=== PATIENT | female | born 1965 | race Caucasian/White ===

== ENCOUNTER 2020-05-10 10:14 | Inpatient (IN) | payer SELFPAY ==
[2020-05-10] MEDS ORDERED: ASPIRIN 81 MG CHEWABLE TABLET ONE (11:23)
[2020-05-10] MEDS ORDERED: METOPROLOL TAR 50 MG TAB ONE (11:24)
[2020-05-10] MEDS ORDERED: NYSTATIN 100MU/GM CREAM 15GM TOP ONE (11:24)
[2020-05-10] MEDS ORDERED: FAMOTIDINE 20 MG/2 ML VIAL IV ONE (11:24)
[2020-05-10] MEDS ORDERED: ENOXAPARIN 80 MG/0.8 ML SQ ONE (11:24)
--- NOTE | 2020-05-10 11:40 | RAD REPORT ---
EXAM DESCRIPTION: Faisalt Single View05/10/2020 11:34 am CLINICAL HISTORY: Chest pain COMPARISON: none FINDINGS: An area of subsegmental atelectasis is present in the mid left lung. The remainder the lungs appear clear of acute infiltrate. The heart is probably upper limits normal size
--- NOTE | 2020-05-10 11:40 | ER ---
Nurse's Notes [facility] Name: Tabitha Monteiro Age: 54 yrs Sex: Female : 1965 Arrival Date: 05/10/2020 Time: 10:17 Bed 18 Private MD: Diagnosis: Chest pain, unspecified;Angina pectoris Presentation: 05/10 10:30 Chief complaint: Patient states: episodic chest pain x 2 weeks ago. Pt states "I get aa5 the pain when I am trying to exercise or when I am stressed about something". Pt also c/o michael burning pain to hands, scaly rash noted to palms, pt states "I've had this rash for about a month now". 10:30 Coronavirus screen: Client denies travel out of the [place] in the last 14 days. At this aa5 time, the client does not indicate any symptoms associated with coronavirus-19. Ebola Screen: Patient negative for fever greater than or equal to 101.5 degrees Fahrenheit, and additional compatible Ebola Virus Disease symptoms. Initial Sepsis Screen: Does the patient meet any 2 criteria? No. Patient's initial sepsis screen is negative. Does the patient have a suspected source of infection? No. Patient's initial sepsis screen is negative. Risk Assessment: Do you want to hurt yourself or someone else? Patient reports no desire to harm self or others. Onset of symptoms was April 2020. 10:30 Acuity: TD 3 aa5 10:30 Method Of Arrival: Ambulatory aa5 Triage Assessment: 10:30 General: Appears in no apparent distress. uncomfortable, Behavior is cooperative, bp appropriate for age, anxious. Pain: Complains of pain in chest. EENT: No deficits noted. Neuro: No deficits noted. Cardiovascular: Rhythm is sinus rhythm. Respiratory: No deficits noted. GI: No signs and/or symptoms were reported involving the gastrointestinal system. : No signs and/or symptoms were reported regarding the genitourinary system. Derm: No deficits noted. Musculoskeletal: No deficits noted. Historical: - Allergies: 10:30 No Known Allergies; aa5 - PMHx: 10:30 Thyroid problem; acid reflux; Depression; aa5 - PSHx: 10:30 ; aa5 - Immunization history:: Adult Immunizations unknown. - Social history:: Smoking status: Patient reports the use of cigarette tobacco products, 3 cigarettes a day . - Family history:: not pertinent. Screenin:43 Abuse screen: Denies threats or abuse. Denies injuries from another. Nutritional bp screening: No deficits noted. Tuberculosis screening: No symptoms or risk factors identified. Fall Risk None identified. Assessment: 10:30 General: SEE TRIAGE NOTE. bp 10:30 Pain: Pain does not radiate. Pain began 2 WK AGO. bp 11:30 Reassessment: ALL CURRENT ORDERS COMPLETE, VS STABLE ON MONITOR. bp 12:02 Reassessment: ADMIT MD AT B/S. bp 12:56 Reassessment: ADMIT IN PROCESS. NO ACUTE S/S AT THIS TIME. bp 13:19 Reassessment: PT INSTRUCTED TO REMAIN NPO FOR CARDIAC CATH. bp 13:59 Reassessment: ADMIT COMPLETE, ROOM 209 ASSIGNED. REPORT TO CHELE LLAMAS. bp Vital Signs: 10:30 BP 123 / 49; Pulse 65; Resp 18 S; Temp 98.5(O); Pulse Ox 98% on R/A; Weight 72.12 kg; bp 11:30 BP 115 / 57; Pulse 63; Resp 16; Pulse Ox 99% ; bp 12:55 BP 121 / 72; Pulse 51; Resp 16; Pulse Ox 100% ; bp 13:59 BP 121 / 63; Pulse 61; Resp 17; Temp 98.5; Pulse Ox 98% ; bp ED Course: 10:17 Patient arrived in ED. as 10:20 EKG completed in triage. Results shown to MD. aa5 10:32 Arm band placed on Patient placed in an exam room, on a stretcher. aa5 10:33 Freedom Nolan MD is Attending Physician. [place] 10:33 EKG done, by low voltage technician. reviewed by Freedom Nolan MD. at1 10:40 Triage completed. aa5 10:46 Daniel Hickey, FARHAD is Primary Nurse. bp 11:26 Inserted saline lock: 20 gauge in right antecubital area, using aseptic technique. bp Blood collected. 11:34 XRAY Chest (1 view) In Process Unspecified. EDMS 11:39 Prince Tate MD is Hospitalizing Provider. [place] 11:43 Patient has correct armband on for positive identification. Bed in low position. Call bp light in reach. Side rails up X2. 12:00 planner internship on. Pulse ox on. NIBP on. bp 14:00 No provider procedures requiring assistance completed. Patient admitted, IV remains in bp place. Patient maintains SpO2 saturation greater than 95% on room air. Administered Medications: 11:20 Drug: Aspirin Chewable Tablet 324 mg Route: PO; bp 13:20 Follow up: Response: No adverse reaction bp 11:20 Drug: Lopressor (metoprolol TARTRATE) 50 mg Route: PO; bp 13:20 Follow up: Response: No adverse reaction bp 11:20 Drug: Pepcid 20 mg Route: IVP; Site: right antecubital; bp 13:21 Follow up: Response: No adverse reaction bp 11:20 Drug: Lovenox 1 mg/kg Route: Sub-Q; Site: left lower abdomen; bp 13:20 Follow up: Response: No adverse reaction bp 11:20 Drug: Nystatin-Triamcinolone 1 application Route: Topical; Site: affected area; bp Outcome: 11:39 Decision to Hospitalize by Provider. [place] 14:00 Admitted to Tele accompanied by tech, via wheelchair, room 209, with chart, Report bp called to CHELE LLAMAS 14:00 Condition: stable 14:00 Instructed on the need for admit. 14:17 Patient left the ED. bp Signatures: Dispatcher [employer] EDMS Freedom Nolan MD MD cha Martinez, Amelia as Calderon, Audri, RN RN aa5 Nova Rodriguez, product marketing director EKG Tat1 Daniel Hickey RN RN bp Corrections: (The following items were deleted from the chart) 10:55 10:30 BP 123 / 49; Pulse 65bpm; Resp 18bpm; Spontaneous; Pulse Ox 98% RA; Temp 98.5F bp Oral; aa5
--- NOTE | 2020-05-10 11:40 | EDPHYS ---
Physician Documentation [facility] Name: Tabitha Monteiro Age: 54 yrs Sex: Female : 1965 Arrival Date: 05/10/2020 Time: 10:17 Bed 18 Private MD: SHAKIR Physician Freedom Nolan HPI: 05/10 10:57 This 54 yrs old Female presents to ER via Ambulatory with complaints of Chest [place] Pain, Hand Pain. 10:57 The patient or guardian reports chest pain that is located primarily in the substernal [place] area, anterior chest wall, bilaterally. Onset: today, yesterday. The pain does not radiate. Associated signs and symptoms: Pertinent positives: shortness of breath. The chest pain is described as a pressure. Modifying factors: The symptoms are alleviated by nothing. the symptoms are aggravated by exertion. Severity of pain: At its worst the pain was mild in the emergency department the pain is unchanged. The patient has experienced similar episodes in the past, several times. Historical: - Allergies: 10:30 No Known Allergies; aa5 - PMHx: 10:30 Thyroid problem; acid reflux; Depression; aa5 - PSHx: 10:30 ; aa5 - Immunization history:: Adult Immunizations unknown. - Social history:: Smoking status: Patient reports the use of cigarette tobacco products, 3 cigarettes a day . - Family history:: not pertinent. ROS: 10:57 Constitutional: Negative for fever, chills, and weight loss, Eyes: Negative for injury, [place] pain, redness, and discharge, ENT: Negative for injury, pain, and discharge, Neck: Negative for injury, pain, and swelling, Respiratory: Negative for shortness of breath, cough, wheezing, and pleuritic chest pain, Abdomen/GI: Negative for abdominal pain, nausea, vomiting, diarrhea, and constipation, Back: Negative for injury and pain, : Negative for injury, bleeding, discharge, and swelling, MS/Extremity: Negative for injury and deformity, Skin: Negative for injury, rash, and discoloration, Neuro: Negative for headache, weakness, numbness, tingling, and seizure, Psych: Negative for depression, anxiety, suicide ideation, homicidal ideation, and hallucinations, Allergy/Immunology: Negative for hives, rash, and allergies, Endocrine: Negative for neck swelling, polydipsia, polyuria, polyphagia, and marked weight changes, Hematologic/Lymphatic: Negative for swollen nodes, abnormal bleeding, and unusual bruising. 10:57 Cardiovascular: Positive for chest pain, palpitations. 10:57 Respiratory: Positive for shortness of breath. Exam: 10:57 Constitutional: This is a well developed, well nourished patient who is awake, alert, [place] and in no acute distress. Head/Face: Normocephalic, atraumatic. Eyes: Pupils equal round and reactive to light, extra-ocular motions intact. Lids and lashes normal. Conjunctiva and sclera are non-icteric and not injected. Cornea within normal limits. Periorbital areas with no swelling, redness, or edema. ENT: Nares patent. No nasal discharge, no septal abnormalities noted. Tympanic membranes are normal and external auditory canals are clear. Oropharynx with no redness, swelling, or masses, exudates, or evidence of obstruction, uvula midline. Mucous membranes moist. Neck: Trachea midline, no thyromegaly or masses palpated, and no cervical lymphadenopathy. Supple, full range of motion without nuchal rigidity, or vertebral point tenderness. No Meningismus. Chest/axilla: Normal chest wall appearance and motion. Nontender with no deformity. No lesions are appreciated. Respiratory: Lungs have equal breath sounds bilaterally, clear to auscultation and percussion. No rales, rhonchi or wheezes noted. No increased work of breathing, no retractions or nasal flaring. Abdomen/GI: Soft, non-tender, with normal bowel sounds. No distension or tympany. No guarding or rebound. No evidence of tenderness throughout. Back: No spinal tenderness. No costovertebral tenderness. Full range of motion. Female : Normal external genitalia. Skin: Warm, dry with normal turgor. Normal color with no rashes, no lesions, and no evidence of cellulitis. MS/ Extremity: Pulses equal, no cyanosis. Neurovascular intact. Full, normal range of motion. Neuro: Awake and alert, GCS 15, oriented to person, place, time, and situation. Cranial nerves II-XII grossly intact. Motor strength 5/5 in all extremities. Sensory grossly intact. Cerebellar exam normal. Normal gait. Psych: Awake, alert, with orientation to person, place and time. Behavior, mood, and affect are within normal limits. 10:57 Cardiovascular: Rate: normal, Rhythm: regular, Pulses: Pulses are 4+ in bilateral radial, brachial, femoral, popliteal, posterior tibial and and dorsalis pedis arteries.. Heart sounds: normal, normal S1and S2, no S3 or S4, no murmur, no rub, no gallop, Edema: is not appreciated, JVD: is not appreciated, Bilateral blood pressure: is equal. Vital Signs: 10:30 BP 123 / 49; Pulse 65; Resp 18 S; Temp 98.5(O); Pulse Ox 98% on R/A; Weight 72.12 kg; bp 11:30 BP 115 / 57; Pulse 63; Resp 16; Pulse Ox 99% ; bp 12:55 BP 121 / 72; Pulse 51; Resp 16; Pulse Ox 100% ; bp 13:59 BP 121 / 63; Pulse 61; Resp 17; Temp 98.5; Pulse Ox 98% ; bp MDM: 10:33 Patient medically screened. [place] 11:00 Differential diagnosis: abnormal EKG, acute myocardial infarction, chest wall pain, [place] congestive heart failure cholecystitis, Cholelithiasis costochondritis, hiatal hernia, pancreatitis, pleurisy, pulmonary embolus, stable angina, unstable angina. HEART Score: History: Moderately Suspicious (1), ECG: Non specific repolarization disturbance / LBTB / PM (1), Age: > 45 and < 65 years (1), Risk Factors: 1 or 2 risk factors (1), [Hypertension] [+ Family HX] Troponin: < or = 1 x Normal Limit (0). The patient was given aspirin in the Emergency Department. The patient's deep vein thrombosis risk score was calculated as follows: Total Score: 0. This patient was found to be at low risk for a deep vein thrombosis by using the Well's assessment criteria. The patient's pulmonary embolism risk score was calculated as follows: Total Score: 0-2 points. This patient was found to be at low risk for a pulmonary embolism by using the Well's assessment criteria. PITA Risk Score: TOTAL SCORE = 0. Data reviewed: vital signs, nurses notes, lab test result(s), EKG, radiologic studies, plain films. Data interpreted: library monitor: rate is 65 beats/min, rhythm is regular, Pulse oximetry: on room air is 98 %. Test interpretation: by ED physician or midlevel provider: ECG, plain radiologic studies. 05/10 10:47 Order name: Basic Metabolic Panel; Complete Time: 12:24 [facility] 05/10 10:47 Order name: CBC with Diff; Complete Time: 12:24 [facility] 05/10 10:47 Order name: LFT's; Complete Time: 12:24 [facility] 05/10 10:47 Order name: Magnesium; Complete Time: 12:24 [facility] 05/10 10:47 Order name: NT PRO-BNP; Complete Time: 12:24 [facility] 05/10 10:47 Order name: Troponin (emerg Dept Use Only); Complete Time: 12:24 [facility] 05/10 10:47 Order name: XRAY Chest (1 view); Complete Time: 12:06 [facility] 05/10 10:47 Order name: EKG; Complete Time: 10:48 [facility] 05/10 12:16 Order name: CBC Smear Scan; Complete Time: 12:24 [facility] 05/10 10:47 Order name: Cardiac monitoring; Complete Time: 11:38 [facility] 05/10 10:47 Order name: EKG - Nurse/Tech; Complete Time: 11:38 [facility] 05/10 10:47 Order name: IV Saline Lock; Complete Time: 11:38 [facility] 05/10 10:47 Order name: Labs collected and sent; Complete Time: 11:38 [facility] 05/10 10:47 Order name: O2 Per Protocol; Complete Time: 10:53 [facility] 05/10 10:47 Order name: O2 Sat Monitoring; Complete Time: 10:53 [facility] 05/10 13:06 Order name: NPO; Complete Time: 13:20 [facility] Administered Medications: 11:20 Drug: Aspirin Chewable Tablet 324 mg Route: PO; bp 13:20 Follow up: Response: No adverse reaction bp 11:20 Drug: Lopressor (metoprolol TARTRATE) 50 mg Route: PO; bp 13:20 Follow up: Response: No adverse reaction bp 11:20 Drug: Pepcid 20 mg Route: IVP; Site: right antecubital; bp 13:21 Follow up: Response: No adverse reaction bp 11:20 Drug: Lovenox 1 mg/kg Route: Sub-Q; Site: left lower abdomen; bp 13:20 Follow up: Response: No adverse reaction bp 11:20 Drug: Nystatin-Triamcinolone 1 application Route: Topical; Site: affected area; bp Disposition: 05/10/20 11:39 Hospitalization ordered by Prince Bebeto for Observation. Preliminary diagnosis are Chest pain, unspecified, Angina pectoris. - Bed requested for Telemetry/MedSurg (observation). - Status is Observation. bp - Condition is Fair. - Problem is new. - Symptoms have improved. Signatures: Dispatcher [employer] EDMecca Scherer RN RN dw Anderson, Corey, MD MD cha Calderon, Audri RN RN aa5 Daniel Hickey RN RN bp Corrections: (The following items were deleted from the chart) 13:43 11:39 Hospitalization Ordered by Prince Bebeto BROOKS for Observation. Preliminary dw diagnosis is Chest pain, unspecified; Angina pectoris. Bed requested for Telemetry/MedSurg (observation). Status is Observation. Condition is Fair. Problem is new. Symptoms have improved. [facility] 14:17 13:43 05/10/2020 11:39 Hospitalization Ordered by Prince Bebeto BROOKS for Observation. bp Preliminary diagnosis is Chest pain, unspecified; Angina pectoris. Bed requested for Telemetry/MedSurg (observation). Status is Observation. Condition is Fair. Problem is new. Symptoms have improved. dw
[2020-05-10 11:44] LABS: Absolute Lymphocytes (CBC) 1.5 K/uL (0.7-4.9); Basophils % 1.6 % (0-1.3); Hematocrit 29.7 % (36.0-45.0); Lymphocytes % 30.7 % (15.3-44.8); MPV 8.4 fL (7.6-11.3); RBC Red Blood Cell Count 4.24 M/uL (3.86-4.86)
[2020-05-10 12:08] LABS: ALT/SGPT 14 U/L (12-78); AST/SGOT 16 U/L (15-37); Albumin 3.4 g/dL (3.4-5.0); Alkaline Phosphatase 57 U/L (45-117); BUN Blood Urea Nitrogen 9 mg/dL (7-18); Bicarbonate 26 mmol/L (21-32); Bilirubin Direct < 0.1 mg/dL (0-0.2); Bilirubin Total 0.2 mg/dL (0.2-1.0); Glucose Level 86 mg/dL (74-106); Magnesium 2.2 mg/dL (1.8-2.4); NT PRO-BNP 86 pg/mL (<125); Potassium 4.1 mmol/L (3.5-5.1); Protein, Total 6.8 g/dL (6.4-8.2); Sodium Level 141 mmol/L (136-145); Troponin (Emerg Dept Use Only) < 0.02 ng/mL (0.0-0.045)
[2020-05-10 12:16] LABS: Anisocytosis 2+; Blood Morphology Comment NOTED (NOT SEEN); Hypochromasia 1+; Platelet Estimate ADEQ; White Blood Cell Scan OK (OK)
--- NOTE | 2020-05-10 12:52 | P.HP ---
Certification for Inpatient Patient admitted to: Observation With expected LOS: <2 Midnights Patient will require the following post-hospital care: None Practitioner: I am a practitioner with admitting privileges, knowledge of patient current condition, hospital course, and medical plan of care. Services: Services provided to patient in accordance with Admission requirements found in Title 42 Section 412.3 of the Code of Federal Regulations Patient History Date of Service: 05/10/20 Primary Care Provider: Vincent pedraza [place] resident Reason for admission: Chest pain History of Present Illness: 54-year-old female with history of depression, hypothyroidism, and GERD. Patient presented with chest pain. Chest pain mainly to the left chest wall area. It is associated with some shortness of breath. She has noted some chest pain/shortness of breath with exertion. Pain is about a 5/10. Some radiation noted. Today she noted some increase in palpitations. She denies any cough, wheezing. No recent exposure to COVID. She was tested last week it was negative. She is a smoker but smokes 3 cigarettes per day. Patient came to the ER for further evaluation. In the ER patient evaluated. Vital signs stable. EKG shows known significant changes. No ST elevation noted. White count 4.9, hemoglobin 9.2. Platelet count 314. Sodium 141, potassium 4.1. BUN of 9, creatinine 0.8 with a GFR of 6. Glucose 86. Chest x-ray unremarkable. Patient admitted for further evaluation and treatment. When I saw the patient ER, she appeared comfortable. No significant chest pain noted at this time. Home medications list reviewed: Yes - Past Medical/Surgical History Diabetic: No -: Hypothyroidism -: GERD -: Depression -: Tobacco abuse -: Psychosocial/ Personal History: Patient is single. She has 5 children. - Family History Family History: Reviewed- Non-Contributory - Social History Smoking Status: Light Tobacco smoker (1-9 cigarettes/day) Counseled patient to stop smoking for: less than 10 minutes Smoking therapy provided: Yes Patient receptive to therapy: Yes Alcohol use: No CD- Drugs: No Caffeine use: Yes Place of Residence: Home Review of Systems General: As per HPI Eyes: Unremarkable ENT: Unremarkable Respiratory: Shortness of Breath, SOB with Excertion, As per HPI Cardiovascular: Chest Pain, Palpitations, As per HPI Gastrointestinal: Unremarkable Genitourinary: Unremarkable Musculoskeletal: Unremarkable Integumentary: Unremarkable Neurological: Unremarkable Lymphatics: Unremarkable Physical Examination - Physical Exam General: Alert, In no apparent distress, Oriented x3, Cooperative HEENT: Atraumatic, Normocephalic, PERRLA, Mucous membr. moist/pink Neck: Supple Respiratory: Clear to auscultation bilaterally, Normal air movement Cardiovascular: Normal pulses, Regular rate/rhythm Gastrointestinal: Normal bowel sounds, Soft and benign, Non-distended, No tenderness, No masses, No rebound, No guarding Musculoskeletal: No erythema, No tenderness, No warmth Integumentary: No tenderness/swelling, No erythema, No warmth, No cyanosis Neurological: Normal speech, Normal strength at 5/5 x4 extr, Normal tone, Normal affect - Studies Laboratory Data (last 24 hrs) 05/10/20 11:20: WBC 4.9, Hgb 9.2 L, Hct 29.7 L, Plt Count 314 05/10/20 11:20: Sodium 141, Potassium 4.1, BUN 9, Creatinine 0.87, Glucose 86, Magnesium 2.2, Total Bilirubin 0.2, AST 16, ALT 14, Alkaline Phosphatase 57 Assessment and Plan - Plan Impression: Chest pain with exertion suspect unstable angina Tobacco abuse Hypothyroidism GERD Depression Anemia likely of chronic disease Plan: Chest pain with exertion suspect unstable angina: Patient admitted for further evaluation and treatment. Will continue monitor cardiac enzymes and telemetry. Will order echocardiogram to further evaluate. Cardiology consulted to further evaluate and address. Patient may require inpatient cardiac evaluation. Await recommendations by Cardiology. Will provide aspirin, DVT prophylaxis-Lovenox, and statin medication. Blood pressure stable at this time. No need for medication. Will continue monitor closely. Anticipate possible discharge within 24 hr after further evaluation by Cardiology. Tobacco abuse: Patient smokes very little. Education on cessation provided. Hypothyroidism: Continue home medication-levothyroxine 75 mcg daily. Will check tsh and free T4. GERD: Continue Protonix. Depression: Continue Cymbalta and trazodone. Anemia likely of chronic disease: Will check iron and B12 studies. Discharge Plan: Home Plan to discharge in: 24 Hours - Advance Directives Does patient have a Living Will: No Does patient have a Durable POA for Healthcare: No - Code Status/Comfort Care Code Status Assessed: Yes (Patient is full code) Time Spent Managing Pts Care (In Minutes): 55
[2020-05-10] MEDS ORDERED: ACETAMINOPHEN 500 MG TAB PO PRN (13:59)
[2020-05-10] MEDS ORDERED: ONDANSETRON 4 MG/2 ML VIAL IV PRN (13:59)
[2020-05-10] MEDS: D5 0.9 NS 1,000 ML IV SCH (14:28)
[2020-05-10 14:56] VITALS: BMI 28.1
--- NOTE | 2020-05-10 15:12 | CON ---
Date of Consultation: 05/10/2020 Reason For Consultation: Chest pain. History Of Present Illness: This is a 54-year-old female with history of hypothyroidism, depression, smokes about 3 cigarettes per day, comes in with chest pain. Claimed that it is retrosternal, no ra diation, associated with some shortness of breath. The patient claimed that the pain is happening wi th peak of exercise and she does aerobic activity and it gets better when she rests. Now, she is kira n free. Does not have any nausea or diaphoresis or any fever. No other complaints. Past Medical History: As outlined above in the HPI. Medications: Refer to reconciliation sheet for detailed list. Allergies: NO KNOWN DRUG ALLERGIES. Social History: She is a smoker. Does not use any drugs or alcohol. Family History: No premature coronary artery disease or cancer. Review of Systems: All systems reviewed and they were negative except what mentioned in HPI. Physical Examination: Vital signs: Revealed a temperature of 98.4, heart rate is 78, breathing at 16, blood pressure was 1 35/74. General: Pleasant, middle-aged female, in no apparent distress. Head and Neck: Pupils are equal, react to light. Intact eye movements. No JVD. No cervical lympha denopathy. Neck is supple. Thyroid is not enlarged. Lungs: Clear to auscultation bilaterally. No rhonchi, rales, or crackles. No accessory muscle use. Heart: Regular rate and rhythm. No extra sounds. Abdomen: Soft, nontender. Bowel sounds positive. No organomegaly. No masses or hernia. No rigidi ty or rebound. Extremities: No edema, clubbing, or cyanosis. Intact pulses. Skin: No rash noted. Neurologic: Alert, awake, oriented x3. No acute focal deficits appreciated. Investigations: Creatinine is 0.87. Troponin is less than 0.02. White blood cell count is 4.9 and hemoglobin is 9.2. Assessment And Plan: Chest pain. Has atypical features. However, the patient has already had break fast done. I will recommend admission for observation with serial sets of cardiac enzymes check and telemetry. Obtain echocardiogram and if she rules out with negative troponins, recommend evaluation with stress test. If troponin goes up, then a coronary angiogram will be recommended. Thank you for this consultation. /[email or web address] Voice ID: [id number] Report ID: [id number]
[2020-05-10 16:37] LABS: CKMB Creatine Kinase MB < 1.0 ng/mL (0.3-3.6); Creatine Phosphokinase 34 U/L (26-192); Troponin I < 0.02 ng/mL (0.0-0.045)
[2020-05-10 17:01] LABS: Ferritin 8.3 ng/mL (8-388)
[2020-05-10] MEDS ORDERED: MORPHINE 2 MG/ML SYR IV PRN (20:16)
[2020-05-10] MEDS ORDERED: TRAZODONE 150 MG TAB PO SCH (21:00)
[2020-05-10] MEDS ORDERED: ATORVASTATIN 40 MG TAB PO SCH (21:00)
[2020-05-11 00:53] LABS: CKMB Creatine Kinase MB < 1.0 ng/mL (0.3-3.6); Creatine Phosphokinase 27 U/L (26-192); Troponin I < 0.02 ng/mL (0.0-0.045)
[2020-05-11] MEDS: D5 0.9 NS 1,000 ML IV SCH (03:57)
[2020-05-11 05:13] LABS: Absolute Lymphocytes (CBC) 1.8 K/uL (0.7-4.9); Lymphocytes % 40.3 % (15.3-44.8); MPV 8.2 fL (7.6-11.3); RBC Red Blood Cell Count 3.82 M/uL (3.86-4.86)
[2020-05-11 05:32] LABS: Magnesium 2.2 mg/dL (1.8-2.4); Potassium 3.8 mmol/L (3.5-5.1); Thyroid Stimulating Hormone 0.254 uIU/mL (0.360-3.740)
[2020-05-11] MEDS ORDERED: CYANOCOBALAMIN 1000MCG/ML INJ IM ONE (06:20)
[2020-05-11] MEDS ORDERED: LEVOTHYROXINE SOD 0.075 MG TAB PO SCH (06:30)
[2020-05-11] MEDS ORDERED: PANTOPRAZOLE 40MG TABLET PO SCH (07:30)
--- NOTE | 2020-05-11 07:35 | P.DS ---
Admission Date: 05/11/20 Discharge Date: 05/11/20 Primary Care Provider: milo, JO Kaur resident Discharge Condition: GOOD Reason for Admission: Chest pain Consultations: Cardiology-Dr. Robert Procedures: ECHO: EF 59% LEFT VENTRICULAR WALL MOTION: NORMAL DOPPLER/COLOR FLOW: NORMAL COMMENTS: NORMAL 2-DIMENSIONAL ECHOCARDIOGRAM WITH DOPPLER. NO WALL MOTION ABNORMALITY. NO EFFUSION. Cardiac Stress Test: FINDINGS: No stress induced ischemic defect is seen to suggest stress induced ischemia. No fixed defect is seen to suggest hibernating myocardium or scarred myocardium. The end diastolic volume is 94 ml, the end systolic volume is 28 ml, and the ejection fraction is 70 %. IMPRESSION: No stress induced ischemia. Medical Problem List: Chest pain with exertion non cardiac Tobacco abuse Hypothyroidism GERD with history of gastric ulcer Depression Anemia secondary to iron and B12 deficiency Brief History of Present Illness: 54-year-old female with history of depression, hypothyroidism, and GERD. Patient presented with chest pain. Chest pain mainly to the left chest wall area. It is associated with some shortness of breath. She has noted some chest pain/shortness of breath with exertion. Pain is about a 5/10. Some radiation noted. Today she noted some increase in palpitations. She denies any cough, wheezing. No recent exposure to COVID. She was tested last week it was negative. She is a smoker but smokes 3 cigarettes per day. Patient came to the ER for further evaluation. In the ER patient evaluated. Vital signs stable. EKG shows known significant changes. No ST elevation noted. White count 4.9, hemoglobin 9.2. Platelet count 314. Sodium 141, potassium 4.1. BUN of 9, creatinine 0.8 with a GFR of 6. Glucose 86. Chest x-ray unremarkable. Patient admitted for further evaluation and treatment. When I saw the patient ER, she appeared comfortable. No significant chest pain noted at this time. Hospital Course: Patient presented with chest pain. Chest pain noted with exertion and some shortness of breath. Patient was evaluated in the hospital. Cardiac enzymes unremarkable. No significant EKG changes noted. Patient was seen and evaluated by Cardiology. Cardiology recommended echocardiogram and cardiac stress test to further evaluate. Both unremarkable. Echocardiogram shows normal ejection fraction. Cardiac stress test shows no stress-induced ischemia. Patient has done well. No further cardiac evaluation needed at this time. At discharge she is without significant chest pain or shortness of breath. Chest pain may be related to her GERD with history of gastric ulcer. At discharge patient will continue with Protonix 40 mg daily. Recommend follow up with GI as an outpatient to further monitor and address. Patient will likely require repeat EGD to further evaluate. Patient with anemia. Patient found to have iron and B12 deficiency anemia. Supplementation initiated. At discharge she will continue with iron 325 mg 1 pill twice daily and vitamin-B 12 daily. Recommend to recheck CBC in 1-2 weeks to monitor her progress. Patient may take stool softener over the counter as needed. Patient with depression. At discharge she will continue with her current medication of Cymbalta 60 mg 1 pill twice daily and trazodone 100 mg at bedtime. Recommend follow up with psychiatry to further monitor and address. Patient with hypothyroidism. Tsh slightly decreased with normal free T4. At discharge she will continue with her current dose of levothyroxine 75 mcg daily. Recommend to recheck tsh and free T4 in 4-6 weeks to monitor her progress. Further adjustment in medication may be required at that time. This can be done with the help of her PCP. Vital Signs/Physical Exam: Temp Pulse Resp BP Pulse Ox 97.8 F 60 18 93/54 L 95 05/11/20 03:00 05/11/20 03:00 05/11/20 03:00 05/11/20 03:00 05/11/20 03:00 General: Alert, In no apparent distress, Oriented x3, Cooperative HEENT: Atraumatic Neck: Supple Respiratory: Clear to auscultation bilaterally, Normal air movement Cardiovascular: Normal pulses, Regular rate/rhythm Gastrointestinal: Normal bowel sounds, Soft and benign, Non-distended, No t enderness, No masses, No rebound, No guarding Musculoskeletal: No erythema, No tenderness, No warmth Integumentary: No tenderness/swelling, No erythema, No warmth, No cyanosis Neurological: Normal speech, Normal strength at 5/5 x4 extr, Normal tone, Normal affect Laboratory Data at Discharge: WBC 4.5 K/uL (4.3-10.9) 05/11/20 04:44 Hgb 8.5 g/dL (12.0-15.0) L 05/11/20 04:44 Hct 27.0 % (36.0-45.0) L 05/11/20 04:44 Plt Count 267 K/uL (152-406) 05/11/20 04:44 Sodium 145 mmol/L (136-145) 05/11/20 04:44 Potassium 3.8 mmol/L (3.5-5.1) 05/11/20 04:44 BUN 13 mg/dL (7-18) 05/11/20 04:44 Creatinine 0.97 mg/dL (0.55-1.3) 05/11/20 04:44 Glucose 93 mg/dL (74-106) 05/11/20 04:44 Magnesium 2.2 mg/dL (1.8-2.4) 05/11/20 04:44 Total Bilirubin 0.2 mg/dL (0.2-1.0) 05/10/20 11:20 AST 16 U/L (15-37) 05/10/20 11:20 ALT 14 U/L (12-78) 05/10/20 11:20 Alkaline Phosphatase 57 U/L (45-117) 05/10/20 11:20 Troponin I < 0.02 ng/mL (0.0-0.045) 05/11/20 00:09 Triglycerides 98 mg/dL (<150) 05/11/20 04:44 Cholesterol 168 mg/dL (<200) 05/11/20 04:44 HDL Cholesterol 39 mg/dL (40-60) L 05/11/20 04:44 Cholesterol/HDL Ratio 4.31 05/11/20 04:44 Home Medications: Trazodone [Desyrel*] 100 mg PO DAILY 05/10/20 Cyanocobalamin [Vitamin B-12*] 1,000 mcg PO DAILY #90 tab 05/11/20 Docusate [Colace Cap*] 100 mg PO DAILY #30 cap 05/11/20 Duloxetine HCl 60 mg PO BID #60 05/11/20 Ferrous Sulfate [Iron] 325 mg PO BID #60 tablet 05/11/20 Levothyroxine Sodium 75 mcg PO [id number] #30 05/11/20 Pantoprazole [Protonix Tab*] 1 tab PO DAILY #30 tab 05/11/20 New Medications: Docusate [Colace Cap*] 100 mg PO DAILY #30 cap Duloxetine HCl 60 mg PO BID #60 Ferrous Sulfate [Iron] 325 mg PO BID #60 tablet Levothyroxine Sodium 75 mcg PO [id number] #30 Pantoprazole [Protonix Tab*] 1 tab PO DAILY #30 tab Cyanocobalamin [Vitamin B-12*] 1,000 mcg PO DAILY #90 tab Patient Discharge Instructions: 1. Patient needs to establish care locally. Recommend follow up with a PCP to follow up this hospitalization. 2. Patient presented with chest pain. Chest pain noted with exertion and some shortness of breath. Patient was evaluated in the hospital. Cardiac enzymes unremarkable. No significant EKG changes noted. Patient was seen and evaluated by Cardiology. Cardiology recommended echocardiogram and cardiac stress test to further evaluate. Both unremarkable. Echocardiogram shows normal ejection fraction. Cardiac stress test shows no stress-induced ischemia. Patient has done well. No further cardiac evaluation needed at this time. At discharge she is without significant chest pain or shortness of breath. Chest pain may be related to her GERD with history of gastric ulcer. At discharge patient will continue with Protonix 40 mg daily. Recommend follow up with GI as an outpatient to further monitor and address. Patient will likely require repeat EGD to further evaluate. 3. Patient with anemia. Patient found to have iron and B12 deficiency anemia. Supplementation initiated. At discharge she will continue with iron 325 mg 1 pill twice daily and vitamin-B 12 daily. Recommend to recheck CBC in 1-2 weeks to monitor her progress. Patient may take stool softener over the counter as needed. 4. Patient with depression. At discharge she will continue with her current medication of Cymbalta 60 mg 1 pill twice daily and trazodone 100 mg at bedtime. Recommend follow up with psychiatry to further monitor and address. 5. Patient with hypothyroidism. Tsh slightly decreased with normal free T4. At discharge she will continue with her current dose of levothyroxine 75 mcg daily. Recommend to recheck tsh and free T4 in 4-6 weeks to monitor her progress. Further adjustment in medication may be required at that time. This can be done with the help of her PCP. Diet: AHA Activity: Ad claritza Time spent managing pt's care (in minutes): 55
[2020-05-11] MEDS ORDERED: REGADENOSON 0.4 MG/5 ML SYR IV ONE (08:27)
[2020-05-11] MEDS ORDERED: SOD FERRIC GLUC COMPLX/SUCROSE 125 MG in NA CHLORIDE 0.9% 100 ML IV SCH (09:00)
[2020-05-11] MEDS ORDERED: ENOXAPARIN 40 MG/0.4 ML SQ SCH (09:00)
[2020-05-11] MEDS ORDERED: CYANOCOBALAMIN 1,000 MCG TAB PO SCH (09:00)
[2020-05-11] MEDS ORDERED: ASPIRIN EC 81 MG TAB PO SCH (09:00)
[2020-05-11] MEDS ORDERED: DOCUSATE NA 100 MG CAP PO SCH (09:00)
[2020-05-11] MEDS ORDERED: DULOXETINE 30 MG CAP PO SCH ×2 (09:00)
[2020-05-11] MEDS ORDERED: POTASSIUM CL SA 10 MEQ TAB PO ONE (10:00)
--- NOTE | 2020-05-11 11:26 | ECHO ---
HEIGHT: 5 ft 3 in WEIGHT: 159 lb 0 oz DATE OF STUDY: 05/11/[address]: Manolo Lane DO 2-DIMENSIONAL: YES M.MODE: YES DOPPLER: YES COLOR FLOW: YES TDS: PORTABLE: DEFINITY: BUBBLE STUDY: DIAGNOSIS: CHEST PAIN WITH EXERTION CARDIAC HISTORY: CATHERIZATION: NO SURGERY: NO PROSTHETIC VALVE: NO PACEMAKER: NO MEASUREMENTS (cm) DIASTOLIC (NORMALS) SYSTOLIC (NORMALS) IVSd 0.9 (0.6-1.2) LA Diam 3.2 (1.9-4.0) LVEF 59% LVIDd 4.9 (3.5-5.7) LVIDs 3.3 (2.0-3.5) %FS 31% LVPWd 1.0 (0.6-1.2) Ao Diam 3.1 (2.0-3.7) 2 DIMENSIONAL ASSESSMENT: RIGHT ATRIUM: NORMAL LEFT ATRIUM: NORMAL RIGHT VENTRICLE: NORMAL LEFT VENTRICLE: NORMAL TRICUSPID VALVE: NORMAL MITRAL VALVE: NORMAL PULMONIC VALVE: NORMAL AORTIC VALVE: NORMAL PERICARDIAL EFFUSION: NONE AORTIC ROOT: NORMAL LEFT VENTRICULAR WALL MOTION: NORMAL DOPPLER/COLOR FLOW: NORMAL COMMENTS: NORMAL 2-DIMENSIONAL ECHOCARDIOGRAM WITH DOPPLER. NO WALL MOTION ABNORMALITY. NO EFFUSION. TECHNOLOGIST: SANTOS LOPEZ
--- NOTE | 2020-05-11 11:40 | RAD REPORT ---
EXAM DESCRIPTION: NM - Rest Stress Cardiac Imaging - 05/11/2020 11:16 am CLINICAL HISTORY: CP Chest pain. COMPARISON: No comparisons TECHNIQUE: The patient was administered approximately 10mCi of Tc 99m Sestamibi prior to resting SPE CT imaging of the heart. The patient was then administered approximately 30 mCi of Tc 99m Sestamibi f ollowing exercise or pharmacologic stress. Multiplanar SPECT images were reviewed. FINDINGS: No stress induced ischemic defect is seen to suggest stress induced ischemia. No fixed def ect is seen to suggest hibernating myocardium or scarred myocardium. The end diastolic volume is 94 ml, the end systolic volume is 28 ml, and the ejection fraction is 70 %. IMPRESSION: No stress induced ischemia.
--- NOTE | 2020-05-11 11:43 | TREADPHA ---
DX: CHEST PAIN WITH EXERTION Date of Study: 05/11/2020 Ht: 5' 3 " Wt: 159 lb 0 oz Consulting Physician: AAKASH MEDICATIONS: ASPIRIN, LIPITOR, LOVENOX, COLACE HISTORY: 54 YEAR OLF PATIENT WITH HISTORY OFHIGH CHOLESTEROL, DEPRESSION, POSITIVE SMOKER, LOW THYROID. ADMITTED FOR CHEST PAIN. DENIES CHEST PAIN AT TIME OF TESTING. PHYSICIAL EXAMINATION: RESTING B.P.: 138/43 RESTING H.R.: 56 RESTING EKG: SINUS RHYTHM, NON-SPECIFIC T WAVE PROTOCOL: PHARMACOLOGIC EXERCISE TIME: 3:30 B.P. AT [place]AK STRESS: 122/68 IMPRESSION: NEGATIVE EXERCISE TOLERANCE TEST. NORMAL BLOOD PRESSURE RESPONSE. NO ISCHEMIA. NO PREMATURE VENTRICULAR COMPLEXES. LEXISCAN PENDING.
[2020-05-11 11:55] VITALS: O2SAT 98
[2020-05-11 11:57] VITALS: BP 133/84; TEMP 97.8
[2020-05-11 13:02] LABS: Urine Appearance CLEAR; Urine Bilirubin NEGATIVE (NEG); Urine Blood NEGATIVE (NEG); Urine Color YELLOW; Urine Glucose NEGATIVE (NEG); Urine Protein NEGATIVE (NEG); Urine Urobilinogen 0.2 mg/dL (0.2-1.0)
[2020-05-11 14:26] LABS: Urine Bacteria <20 /HPF (<20); Urine Culture Reflex Order NOT NEEDED; Urine RBC NONE SEEN /HPF (NONE SEEN)
--- NOTE | 2020-05-12 07:18 | EKG ---
Test Date: 2020-05-10 Test Time: 10:26:35 Proofer Apprentice: MARVIN MEASUREMENT RESULTS: Intervals: Rate: 72 OR: 134 QRSD: 70 QT: 396 QTc: 433 [place]: P: -13 OR: 134 QRS: 74 T: 21 INTERPRETIVE STATEMENTS: Normal sinus rhythm Cannot rule out Anterior infarct, age undetermined Abnormal ECG No previous ECG available for comparison Electronically Signed On 05-12-20 07:15:19 CDT by Norman Boswell
== END 2020-05-11 13:00 | disposition home or self-care (01) | DRG 392 ==
LOC: ER 10:14 → ERHOLD 12:41 → 2ND 14:00 → OBSVTOIN 05-11 08:00
PROVIDERS: ADMIT Family Medicine; ATTEND Family Medicine
DX: K21.9 Gastro-esophageal reflux disease without esophagitis (principal); F17.210 Nicotine dependence, cigarettes, uncomplicated; E03.9 Hypothyroidism, unspecified; F32.9 Major depressive disorder, single episode, unspecified; D50.9 Iron deficiency anemia, unspecified; D51.9 Vitamin B12 deficiency anemia, unspecified; Z20.828 Contact with and (suspected) exposure to other viral communicable diseases
CPT/HCPCS: 36415; 71045; 78452; 80048; 80061; 80076; 81001; 82550; 82553; 82607; 82728; 83540; 83735; 83880; 84439; 84443; 84466; 84484; 85025; 93005; 93017; 93306; 94010; 96372; 96374; 99285; A9500; G0378; J1650; J2270; J2785; J2916; J3420; J7042; U0002